=== PATIENT | male | born 1940 | race African-American/Black ===

== ENCOUNTER 2018-05-15 09:13 | Inpatient (IN) | payer MEDICARE, MEDICAID ==
[~2018-05-15] VITALS: Ht 182.9 cm; Wt 90.7 kg
[2018-05-15 11:19] LABS: Hematocrit 39.1 % (41.0-53.0); Hemoglobin 13.4 g/dL (13.5-17.5); Mean Corpuscular Hemoglobin 31.2 pg (28.0-32.0); Mean Corpuscular Hgb Conc. 34.3 g/dL (32.0-36.0); Mean Corpuscular Volume 90.7 fL (80.0-100.0); Platelet Count (auto) 264 10^3/uL (140-450); Red Cell Distribution Width 13.7 % (11.8-14.3); White Blood Cell 7.6 10^3/uL (4.4-10.8)
[2018-05-15 11:25] LABS: Band Neutrophils % (manual) 0; Basophils % (manual) 0 (0.0-2.0); Blast Cells 0; Eosinophils % (manual) 0 (0-7); Metamyelocytes % 0; Myelocytes % 0; Promyelocytes % 0; Reactive Lymphocytes 0
[2018-05-15 11:52] LABS: Urine Bacteria NONE SEEN /hpf (None Seen); Urine Blood 1+ /uL (Negative); Urine Specific Gravity 1.008 (1.001-1.035); Urine WBC 1 /hpf (0 - 3)
[2018-05-15 11:56] LABS: Alanine Aminotransferase 32 U/L (16-61); Albumin 4.4 g/dL (3.4-5.0); Alkaline Phosphatase 151 U/L (45-117); Anion Gap 11 (5-15); Aspartate Aminotransferase 29 U/L (15-37); BUN/Creatinine Ratio 9.5; Blood Urea Nitrogen 27 mg/dL (7-18); Calcium 8.9 mg/dL (8.5-10.1); Carbon Dioxide 22 mmol/L (21-32); Chloride 99 mmol/L (98-107); GFR African American 28 mL/min; GFR Non-African American 23 mL/min; Glucose 132 mg/dL (74-106); Magnesium 1.7 mg/dL (1.6-2.6); Sodium 132 mmol/L (136-145); Total Protein 9.2 g/dL (6.4-8.2)
[2018-05-15 12:36] LABS: Lymphocytes % (manual) 28 (10.0-50.0); Monocytes % (manual) 3 (0-12)
[2018-05-15 13:18] LABS: Alcohol, Urine < 3.0 mg/dL (0-5); Amphetamine Screen, Urine NEGATIVE (NEGATIVE); Barbiturate Scree,Urine NEGATIVE (NEGATIVE); Benzodiazephine Screen, Urine NEGATIVE (NEGATIVE); Cannabinoid Screen, Urine POSITIVE (NEGATIVE); Cocaine Screen, Urine NEGATIVE (NEGATIVE); Opiate Scree,Urine NEGATIVE (NEGATIVE); Phencyclidine Screen, Urine NEGATIVE (NEGATIVE)
[2018-05-15] MEDS ORDERED: ASPirin 81 mg TAB PO ONE (13:45)
[2018-05-15] MEDS ORDERED: ONDANSETRON HCL 4 MG/2 ML VIAL IV ONE (15:45)
[2018-05-15] MEDS ORDERED: MEPERIDINE HCL (25 MG/ML) 1ML VIAL IV ONE (15:45)
[2018-05-15] MEDS: SODIUM CHLORIDE 0.9% 1,000 ML IV SCH ×2 (15:56→22:42)
[2018-05-15] MEDS ORDERED: MORPHINE SULF INJ 2 MG/ML SYRINGE 1ML IV PRN ×2 (16:00)
[2018-05-15] MEDS ORDERED: ACETAMINOPHEN 500 MG TAB PO PRN (16:00)
[2018-05-15] MEDS ORDERED: LORazepam 0.5 MG TAB PO PRN (16:00)
[2018-05-15] MEDS ORDERED: DEXTROSE (50%) 50ML SYRG IV PRN (16:00)
[2018-05-15] MEDS ORDERED: LACTULOSE 20Gm/30ML SOLN PO PRN (16:00)
[2018-05-15] MEDS ORDERED: NITROGLYCERIN 0.4 MG SL TAB SL PRN (16:00)
[2018-05-15] MEDS ORDERED: PROMETHAZINE HCL 25 MG/ML 1ML IV PRN (16:00)
[2018-05-15] MEDS: ACCU-CHEK COMFORT CURVE STRIP VI SCH ×2 (16:50→21:44)
[2018-05-15] MEDS: InsuLIN REG 1unit/0.01ml Soln (100units/ml) SC SCH ×2 (16:51→21:44)
[2018-05-15 16:52] LABS: INR 0.98 (0.9-1.15); Partial Thromboplastin Time 28.2 sec (23.78-33.04); Prothrombin Time 10.5 sec (9.27-12.13)
[2018-05-15 21:00] VITALS: BP 162/91
[2018-05-15] MEDS: HYDROcodone-ACET 5/325MG TAB PO PRN (21:04)
[2018-05-15 22:00] VITALS: BP 162/91
[2018-05-15] MEDS ORDERED: ATORVASTATIN 20 MG TAB PO SCH (22:00)
[2018-05-15] MEDS: cloNIDine HCL 0.1 MG TAB PO PRN (22:43)
[2018-05-15] MEDS: TEMAZEPAM 15 MG CAP PO PRN (22:43)
[2018-05-15] MEDS ORDERED: CITA10TA70 PO (23:34)
[2018-05-15] MEDS ORDERED: LEVO100T8 PO (23:34)
[2018-05-15] MEDS ORDERED: LOSA100T27 PO (23:34)
[2018-05-15] MEDS ORDERED: CLON0.3D4 PO (23:34)
[2018-05-15] MEDS ORDERED: HYDR-2551 PO (23:34)
[2018-05-15] MEDS ORDERED: GLIP-116 PO (23:34)
[2018-05-15] MEDS ORDERED: METO-159 PO (23:34)
[2018-05-15] MEDS ORDERED: ALPR-229 PO (23:34)
[2018-05-15] MEDS ORDERED: AMLO10TA2 PO (23:34)
[2018-05-15] MEDS ORDERED: ATOR20TA50 PO (23:34)
[2018-05-16] MEDS: HYDROcodone-ACET 5/325MG TAB PO PRN ×3 (05:30→22:12)
[2018-05-16] MEDS: cloNIDine HCL 0.1 MG TAB PO PRN ×3 (05:30→22:06)
[2018-05-16] MEDS: InsuLIN REG 1unit/0.01ml Soln (100units/ml) SC SCH ×5 (05:30→22:20)
[2018-05-16] MEDS: ACCU-CHEK COMFORT CURVE STRIP VI SCH ×4 (05:30→22:17)
[2018-05-16 05:56] VITALS: BP 172/87
[2018-05-16 07:03] LABS: Albumin 3.7 g/dL (3.4-5.0); BUN/Creatinine Ratio 10.6; Bilirubin, Total 0.8 mg/dL (0.2-1.0); Calcium 8.4 mg/dL (8.5-10.1); Potassium 4.1 mmol/L (3.5-5.1); Total Protein 7.6 g/dL (6.4-8.2)
[2018-05-16] MEDS: SODIUM CHLORIDE 0.9% 1,000 ML IV SCH ×2 (07:48→14:32)
[2018-05-16 09:27] VITALS: BP 156/84
[2018-05-16] MEDS: ENOXAPARIN SOD 30 MG/0.3 ML SYRINGE SC SCH (10:15)
[2018-05-16] MEDS: PANTOPRAZOLE 40 MG TAB PO SCH (10:17)
[2018-05-16] MEDS: NITROGLYCERIN 0.2MG/HR TOPICAL PATCH TD SCH (10:20)
[2018-05-16] MEDS: ASPirin 81 mg TAB PO SCH (10:21)
[2018-05-16] MEDS: NIFEdipine ER 30 MG TAB PO SCH (10:21)
[2018-05-16 13:00] VITALS: BP 161/98
[2018-05-16] MEDS ORDERED: LACTULOSE 20Gm/30ML SOLN PO ONE (16:30)
[2018-05-16] MEDS: glipiZIDE 5 MG TAB PO ONE (16:45)
[2018-05-16 17:00] VITALS: BP 156/95
[2018-05-16 22:00] VITALS: BP 164/105
[2018-05-16] MEDS: LACTULOSE 20Gm/30ML SOLN PO SCH (22:00)
[2018-05-16] MEDS: ATORVASTATIN 20 MG TAB PO SCH (22:06)
[2018-05-17] MEDS: TEMAZEPAM 15 MG CAP PO PRN (01:28)
[2018-05-17 05:00] VITALS: BP 135/86
[2018-05-17] MEDS: InsuLIN REG 1unit/0.01ml Soln (100units/ml) SC SCH ×4 (06:39→22:15)
[2018-05-17] MEDS: ACCU-CHEK COMFORT CURVE STRIP VI SCH ×4 (06:39→21:46)
[2018-05-17] MEDS: glipiZIDE 5 MG TAB PO SCH (06:39)
[2018-05-17 08:53] VITALS: BP 152/94
[2018-05-17] MEDS ORDERED: LOSARTAN POTASSIUM 50 MG TAB PO SCH (10:00)
[2018-05-17] MEDS: ENOXAPARIN SOD 30 MG/0.3 ML SYRINGE SC SCH (10:00)
[2018-05-17] MEDS: NITROGLYCERIN 0.2MG/HR TOPICAL PATCH TD SCH (10:00)
[2018-05-17] MEDS: LACTULOSE 20Gm/30ML SOLN PO SCH ×2 (10:05→22:14)
[2018-05-17] MEDS: PANTOPRAZOLE 40 MG TAB PO SCH (10:07)
[2018-05-17] MEDS: NIFEdipine ER 30 MG TAB PO SCH (10:07)
[2018-05-17] MEDS: ASPirin 81 mg TAB PO SCH (10:08)
[2018-05-17] MEDS: HYDROcodone-ACET 5/325MG TAB PO PRN ×2 (10:21→21:46)
[2018-05-17] MEDS: METOPROLOL TARTRATE 50 MG TAB PO SCH ×2 (12:46→22:15)
[2018-05-17] MEDS: cloNIDine HCL 0.1 MG TAB PO PRN ×2 (12:47→23:48)
[2018-05-17 13:00] VITALS: BP 186/96
[2018-05-17] MEDS ORDERED: NIFEdipine ER 30 MG TAB PO ONE (13:15)
[2018-05-17 17:00] VITALS: BP 190/109
[2018-05-17] MEDS ORDERED: cloNIDine HCL 0.1 MG TAB PO PRN (17:00)
[2018-05-17] MEDS: LABETALOL HCL 5 MG/ML ML 20ML VIAL IV PRN (17:46)
[2018-05-17] MEDS: TAMSULOSIN HYDROCHLORIDE 0.4 MG CAP PO SCH (18:28)
[2018-05-17 22:00] VITALS: BP 193/100
[2018-05-17] MEDS: ATORVASTATIN 20 MG TAB PO SCH (22:14)
[2018-05-17] MEDS: ALPRAZolam 0.5 MG TAB PO PRN (22:14)
[2018-05-18] MEDS: LABETALOL HCL 5 MG/ML ML 20ML VIAL IV PRN (01:07)
[2018-05-18 05:46] VITALS: BP 147/90
[2018-05-18] MEDS: ACCU-CHEK COMFORT CURVE STRIP VI SCH ×4 (06:45→21:46)
[2018-05-18] MEDS: LEVOTHYROXINE SODIUM 100 MCG TAB PO SCH (06:51)
[2018-05-18] MEDS: glipiZIDE 5 MG TAB PO SCH (06:51)
[2018-05-18] MEDS: InsuLIN REG 1unit/0.01ml Soln (100units/ml) SC SCH ×4 (06:52→22:00)
[2018-05-18 07:09] LABS: BUN/Creatinine Ratio 9.9; Calcium 8.8 mg/dL (8.5-10.1); Phosphorus 3.3 mg/dL (2.5-4.90); Potassium 3.7 mmol/L (3.5-5.1)
[2018-05-18 09:00] VITALS: BP 165/89
[2018-05-18] MEDS: LACTULOSE 20Gm/30ML SOLN PO SCH ×2 (09:16→21:43)
[2018-05-18] MEDS: METOPROLOL TARTRATE 50 MG TAB PO SCH ×2 (09:17→21:43)
[2018-05-18] MEDS: NIFEdipine ER 30 MG TAB PO SCH (09:17)
[2018-05-18] MEDS: PANTOPRAZOLE 40 MG TAB PO SCH (09:18)
[2018-05-18] MEDS: ENOXAPARIN SOD 30 MG/0.3 ML SYRINGE SC SCH (09:18)
[2018-05-18] MEDS: ASPirin 81 mg TAB PO SCH (09:18)
[2018-05-18] MEDS: cloNIDine HCL 0.1 MG TAB PO PRN (11:49)
[2018-05-18] MEDS: ALPRAZolam 0.5 MG TAB PO PRN (12:39)
[2018-05-18 13:00] VITALS: BP_SYST 185; BP_SYST 191; BP_DIAS 108; BP_DIAS 116
[2018-05-18] MEDS ORDERED: HYDROcodone-ACET 5/325MG TAB PO PRN (13:15)
[2018-05-18] MEDS ORDERED: cloNIDine HCL 0.1 MG TAB PO SCH (13:30)
[2018-05-18 17:06] VITALS: BP 163/96
[2018-05-18] MEDS ORDERED: LOSARTAN POTASSIUM 25 MG TAB PO SCH (18:00)
[2018-05-18] MEDS: TAMSULOSIN HYDROCHLORIDE 0.4 MG CAP PO SCH (18:07)
[2018-05-18] MEDS: FUROSEMIDE 20 MG TAB PO SCH (18:07)
[2018-05-18] MEDS: cloNIDine HCL 0.1 MG TAB PO SCH (21:42)
[2018-05-18] MEDS: ATORVASTATIN 20 MG TAB PO SCH (21:43)
[2018-05-18 22:00] VITALS: BP 149/97
[2018-05-19] MEDS: ALPRAZolam 0.5 MG TAB PO PRN (02:56)
[2018-05-19 05:00] VITALS: BP 150/89
[2018-05-19] MEDS: FUROSEMIDE 20 MG TAB PO SCH (05:55)
[2018-05-19 05:58] LABS: BUN/Creatinine Ratio 9.8; Calcium 8.4 mg/dL (8.5-10.1); Potassium 3.9 mmol/L (3.5-5.1)
[2018-05-19] MEDS: ACCU-CHEK COMFORT CURVE STRIP VI SCH ×3 (06:11→17:50)
[2018-05-19] MEDS: LEVOTHYROXINE SODIUM 100 MCG TAB PO SCH (06:27)
[2018-05-19] MEDS: glipiZIDE 5 MG TAB PO SCH (06:28)
[2018-05-19] MEDS: InsuLIN REG 1unit/0.01ml Soln (100units/ml) SC SCH ×3 (06:28→17:00)
[2018-05-19 08:05] VITALS: BP 140/88
[2018-05-19] MEDS: ASPirin 81 mg TAB PO SCH (09:17)
[2018-05-19] MEDS: METOPROLOL TARTRATE 50 MG TAB PO SCH (09:18)
[2018-05-19] MEDS: cloNIDine HCL 0.1 MG TAB PO SCH (09:18)
[2018-05-19] MEDS: LACTULOSE 20Gm/30ML SOLN PO SCH (09:19)
[2018-05-19] MEDS: ENOXAPARIN SOD 30 MG/0.3 ML SYRINGE SC SCH (09:19)
[2018-05-19] MEDS: NIFEdipine ER 30 MG TAB PO SCH (09:19)
[2018-05-19] MEDS: PANTOPRAZOLE 40 MG TAB PO SCH (09:19)
[2018-05-19 12:00] VITALS: BP 131/80
[2018-05-19] MEDS ORDERED: TAM04C PO (13:01)
[2018-05-19] MEDS ORDERED: NIF30XLT PO (13:01)
[2018-05-19 16:18] VITALS: BP 141/86
[2018-05-19 17:58] VITALS: BP 131/80
== END 2018-05-19 18:17 | disposition home health service (06) | DRG 291 ==
LOC: ER 09:13 → TELE 09:14 → TELE-WESTW 20:20
PROVIDERS: ADMIT Internal Medicine; ATTEND Internal Medicine
DX: I13.0 Hypertensive heart and chronic kidney disease with heart failure and stage 1 through stage 4 chronic kidney disease, or unspecified chronic kidney disease (principal); N17.0 Acute kidney failure with tubular necrosis; I50.33 Acute on chronic diastolic (congestive) heart failure; E87.1 Hypo-osmolality and hyponatremia; N18.4 Chronic kidney disease, stage 4 (severe); E11.22 Type 2 diabetes mellitus with diabetic chronic kidney disease; E11.21 Type 2 diabetes mellitus with diabetic nephropathy; F32.9 Major depressive disorder, single episode, unspecified; F41.9 Anxiety disorder, unspecified; M10.9 Gout, unspecified; K21.9 Gastro-esophageal reflux disease without esophagitis; I25.10 Atherosclerotic heart disease of native coronary artery without angina pectoris; D64.9 Anemia, unspecified; N40.0 Benign prostatic hyperplasia without lower urinary tract symptoms; F17.210 Nicotine dependence, cigarettes, uncomplicated; G47.09 Other insomnia; I16.0 Hypertensive urgency; K59.00 Constipation, unspecified; Z82.49 Family history of ischemic heart disease and other diseases of the circulatory system; Z79.82 Long term (current) use of aspirin; Z79.899 Other long term (current) drug therapy
CPT/HCPCS: 36415; 71046; 76775; 80048; 80053; 80061; 80307; 81001; 82550; 82962; 83036; 83735; 84100; 84443; 84484; 85007; 85027; 85610; 85652; 85730; 86141; 93005; 96374; 96375; 97163; J1815; J2405

== ENCOUNTER 2019-04-14 14:43 | Inpatient (IN) | payer OTHER, MEDICAID, MEDICARE | END 2019-04-16 16:29 | disposition home or self-care (01) | LOC: ER 14:43 → TELE 14:44 → TELE-WESTW 23:43 | DX: R55 Syncope and collapse (principal); E11.22 Type 2 diabetes mellitus with diabetic chronic kidney disease; N18.3 Chronic kidney disease, stage 3 (moderate); I12.9 Hypertensive chronic kidney disease with stage 1 through stage 4 chronic kidney disease, or unspecified chronic kidney disease ==

== ENCOUNTER 2022-02-24 20:16 | Inpatient (IN) | payer OTHER, MEDICAID ==
[~2022-02-24] VITALS: Ht 182.9 cm; Wt 74.8 kg
[~2022-02-24 20:16] MED LIST: ALBUAER3 IN; ALPR0.25 PO; AMLO-496 PO; ATOR20TA50 PO; CLON0.3D4 PO; DOXY-286 PO; GLIP10TA9 PO; LEVO100T8 PO; METO-159 PO; NIFE1TAB36 PO; PRED20TA2 PO; TAM04C PO
[2022-02-24] MEDS ORDERED: cloNIDine HCL 0.1 MG TAB PO ONE (21:15)
[2022-02-24 21:42] LABS: Basophils # (auto) 0.1 10 ^3/uL (0-0.2); Eosinophils # (auto) 0.1 10 ^3/uL (0-0.8); Eosinophils % (auto) 1.4 % (0.0-7.0); Hematocrit 33.8 % (41.0-53.0); Hemoglobin 11.5 g/dL (13.5-17.5); Lymphocytes # (auto) 2.1 10 ^3/uL (0.4-5.4); Lymphocytes % (auto) 40.7 % (10.0-50.0); Mean Corpuscular Volume 88.2 fL (80.0-100.0); Monocytes # (auto) 0.5 10 ^3/uL (0-1.3); Monocytes % (auto) 9.8 % (0.0-12.0); Neutrophils # (auto) 2.5 10 ^3/uL (1.6-8.6); Neutrophils % (auto) 47.1 % (37.0-80.0); Red Blood Cells 3.83 10^6/uL (4.5-5.90); Red Cell Distribution Width 14.3 % (11.8-14.3); White Blood Cell 5.3 10^3/uL (4.4-10.8)
[2022-02-24 21:45] LABS: Albumin 3.9 g/dL (3.4-5.0); Calcium 9.2 mg/dL (8.5-10.1); Potassium 4.5 mmol/L (3.5-5.1)
[2022-02-24 21:49] LABS: BUN/Creatinine Ratio 10.4; Bilirubin, Total 0.4 mg/dL (0.2-1.0); Total Protein 7.8 g/dL (6.4-8.2)
[2022-02-25] MEDS ORDERED: LABETALOL HCL 200 MG TAB PO ONE ×2 (00:30→02:15)
[2022-02-25] MEDS ORDERED: hydrALAZINE HCL 20 MG/ML VL IV PRN (12:30)
[2022-02-25] MEDS: NIFEdipine ER 30 MG TAB PO SCH (13:02)
[2022-02-25] MEDS: METOPROLOL TARTRATE 50 MG TAB PO SCH ×2 (13:04→23:42)
[2022-02-25] MEDS: hydrALAZINE HCL 25 MG TAB PO SCH ×2 (14:43→23:42)
[2022-02-25] MEDS ORDERED: HYDROcodone-ACET 5/325MG TAB PO PRN (14:45)
[2022-02-25] MEDS ORDERED: ONDANSETRON HCL 4 MG/2 ML VIAL IV PRN (14:45)
[2022-02-25] MEDS ORDERED: ACETAMINOPHEN 325 MG TAB PO PRN (14:45)
[2022-02-25 23:55] VITALS: BP 162/84
[2022-02-26] VITALS (7 sets, daily range): BP systolic 97–174; BP diastolic 82–103
[2022-02-26] MEDS: hydrALAZINE HCL 25 MG TAB PO SCH (06:22)
[2022-02-26] MEDS: NIFEdipine ER 30 MG TAB PO SCH (09:51)
[2022-02-26] MEDS: METOPROLOL TARTRATE 50 MG TAB PO SCH (09:51)
[2022-02-26] MEDS ORDERED: CLON0.1T PO ×2 (12:15→19:08)
[2022-02-26] MEDS ORDERED: cloNIDine HCL 0.1 MG TAB PO ONE (12:30)
[2022-02-26] MEDS ORDERED: HYDR25TA87 PO (19:08)
[2022-02-26] MEDS ORDERED: cloNIDine HCL 0.1 MG TAB PO SCH (22:00)
[2022-02-28] MEDS ORDERED: hydrALAZINE HCL 25 MG TAB PO SCH (14:00)
== END 2022-02-26 22:31 | disposition home health service (06) | DRG 305 ==
LOC: ER 20:23 → TELE 02-25 14:40 → TELE-EAST 02-25 23:15
PROVIDERS: ADMIT Internal Medicine; ATTEND Internal Medicine
DX: I16.0 Hypertensive urgency (principal); E11.22 Type 2 diabetes mellitus with diabetic chronic kidney disease; I12.9 Hypertensive chronic kidney disease with stage 1 through stage 4 chronic kidney disease, or unspecified chronic kidney disease; N18.9 Chronic kidney disease, unspecified; N40.0 Benign prostatic hyperplasia without lower urinary tract symptoms; E03.9 Hypothyroidism, unspecified; E78.5 Hyperlipidemia, unspecified; Z20.822 Contact with and (suspected) exposure to COVID-19; Z79.84 Long term (current) use of oral hypoglycemic drugs
CPT/HCPCS: 36415; 70450; 80053; 82962; 83735; 84484; 85025; 93005; 93306; G0378

== ENCOUNTER 2023-07-25 11:11 | Emergency (ER) | payer OTHER, MEDICAID ==
[~2023-07-25] VITALS: Ht 182.9 cm; Wt 70.5 kg
[~2023-07-25 11:11] MED LIST changes: -ALBUAER3 IN; -AMLO-496 PO; +CLON0.1T PO; -CLON0.3D4 PO; -DOXY-286 PO; +HYDR25TA87 PO; -PRED20TA2 PO; -TAM04C PO; +TAMS-35 PO
[2023-07-25 11:14] VITALS: BP 160/73; RESP 18; O2SAT 98
[2023-07-25 11:23] VITALS: PULSE 70
[2023-07-25] MEDS ORDERED: TRAM50TA2 PO (12:33)
== END 2023-07-25 18:13 | disposition home or self-care (01) ==
LOC: ER 11:11
DX: S20.212A Contusion of left front wall of thorax, initial encounter (principal); I12.9 Hypertensive chronic kidney disease with stage 1 through stage 4 chronic kidney disease, or unspecified chronic kidney disease; E11.22 Type 2 diabetes mellitus with diabetic chronic kidney disease; N18.9 Chronic kidney disease, unspecified; E78.5 Hyperlipidemia, unspecified; E03.9 Hypothyroidism, unspecified; F17.210 Nicotine dependence, cigarettes, uncomplicated; Z90.49 Acquired absence of other specified parts of digestive tract; Z79.899 Other long term (current) drug therapy; W06.XXXA Fall from bed, initial encounter; Y93.89 Activity, other specified; Y92.89 Other specified places as the place of occurrence of the external cause; Y99.8 Other external cause status
CPT/HCPCS: 71250; 93005

== ENCOUNTER 2023-11-10 06:00 | Day surgery (SDC) | payer OTHER, MEDICAID ==
[~2023-11-10] VITALS: Ht 182.9 cm; Wt 70.3 kg
[~2023-11-10 06:00] MED LIST changes: -ALPR0.25 PO; +CETI10TA2 PO; +HYDR-4798 PO; +INSU1INJ19 SC; +METF-370 PO; -METO-159 PO; +METO25TA5 PO
[2023-11-10] MEDS ORDERED: CIPROFLOXACIN 400MG/200ML 200 ML IV ONE (07:29)
[2023-11-10] MEDS ORDERED: SUCCINYLCHOLINE CHLORIDE 20 MG/ML 10ML VIAL IV ONE (07:34)
[2023-11-10] MEDS ORDERED: MEPERIDINE HCL (50 MG/ML) 1 ML VIAL ONE (07:36)
[2023-11-10] MEDS ORDERED: fentaNYL CITRATE 100 MCG/2 ML VL ONE (07:36)
[2023-11-10] MEDS ORDERED: MIDAZOLAM HCL 2MG/2ML 2ml VIAL (1mg/ml) ONE (07:36)
[2023-11-10] MEDS ORDERED: DexAMETHasone SOD PHOS 10MG/1ML VIAL INJ ONE (07:36)
[2023-11-10] MEDS ORDERED: ETOMIDATE (2MG/ML) 20ML VIAL IV ONE (07:42)
[2023-11-10] MEDS ORDERED: ACCU-CHEK COMFORT CURVE STRIP VI ONE (08:00)
[2023-11-10] MEDS ORDERED: ONDANSETRON HCL 4 MG/2 ML VIAL IV PRN (08:00)
[2023-11-10] MEDS ORDERED: ePHEDrine SULFATE 50 MG/ML AMP IV PRN (08:00)
[2023-11-10] MEDS ORDERED: HYDROmorphone HCL 2 MG/ML VL/or syr IV PRN ×3 (08:00→08:30)
[2023-11-10] MEDS ORDERED: MIDAZOLAM HCL 2MG/2ML 2ml VIAL (1mg/ml) IV PRN (08:00)
[2023-11-10 08:50] VITALS: TEMP 98.1
[2023-11-10] MEDS ORDERED: ONDANSETRON HCL 4 MG/2 ML VIAL ONE (09:08)
[2023-11-10] MEDS: LABETALOL HCL 5 MG/ML 4ML SYRINGE IV PRN (09:16)
[2023-11-10] MEDS ORDERED: hydrALAZINE HCL 20 MG/ML VL ONE (10:28)
[2023-11-10] MEDS: hydrALAZINE HCL 20 MG/ML VL IV ONE (10:34)
[2023-11-10 11:00] VITALS: BP 184/97; PULSE 98; RESP 16; O2SAT 99
== END 2023-11-10 11:20 | disposition home or self-care (01) ==
LOC: SUR 06:00
PROVIDERS: ATTEND Urology
DX: N40.1 Benign prostatic hyperplasia with lower urinary tract symptoms (principal); R33.8 Other retention of urine; N13.8 Other obstructive and reflux uropathy; I12.9 Hypertensive chronic kidney disease with stage 1 through stage 4 chronic kidney disease, or unspecified chronic kidney disease; E11.22 Type 2 diabetes mellitus with diabetic chronic kidney disease; N18.4 Chronic kidney disease, stage 4 (severe); N18.9 Chronic kidney disease, unspecified; E78.5 Hyperlipidemia, unspecified; E89.0 Postprocedural hypothyroidism; Z79.899 Other long term (current) drug therapy; Z98.890 Other specified postprocedural states
CPT/HCPCS: 52601; 82962; J0330; J0360; J0744; J1100; J2175; J2250; J2405; J3010; J3490